=== PATIENT | male | born 1955 | race Caucasian/White ===

== ENCOUNTER 2016-04-18 10:42 | Observation (INO) | payer OTHER ==
--- NOTE | 2016-04-18 10:54 | CPEKG ---
Heart Rate: 60 RR Interval: 1000 P-R Interval: 200 QRSD Interval: 88 QT Interval: 396 QTC Interval: 396 P [place]: 35 QRS [place]: -17 T Wave [place]: 34 EKG Severity - ABNORMAL ECG - EKG Impression: SINUS RHYTHM EKG Impression: PROBABLE INFERIOR INFARCT, AGE INDETERMINATE EKG Impression: CONSIDER ANTEROSEPTAL INFARCT Electronically Signed By: Neymar Silvestre 18-Apr-2016 10:58:59
[2016-04-18] MEDS ORDERED: ASPIRIN 81 MG CHEWABLE TAB PO ONE (10:56)
[2016-04-18] MEDS ORDERED: NS 1,000 ML IV ONE ×2 (11:07→16:26)
[2016-04-18] MEDS ORDERED: IPRATROPIUM/ALBUTEROL 3 ML DEYVIAL IH ONE (11:07)
--- NOTE | 2016-04-18 11:11 | EDPHY ---
H & P Stated Complaint: cp HPI/ROS: CHIEF COMPLAINT: Chest pain HISTORY OF PRESENT ILLNESS: Patient is a 60-year-old man who comes to the emergency department complaining of chest pain that radiates to his back. He has a history of cardiac disease with a stent in his LAD and right coronary artery. The most recent placed by Dr. Khan about 5 years ago. He is also a smoker. He denies COPD asthma history. Does have mild wheezing on exam. No recent fevers. He does not feel short of breath. No diaphoresis. His pain began around 6:00 a.m. this morning while he was waking up from sleep. REVIEW OF SYSTEMS: Constitutional: denies: chills, fever, recent illness, recent injury EENTM: denies: blurred vision, double vision, nose congestion Respiratory: denies: cough, shortness of breath Cardiac: See HPI Gastrointestinal/Abdominal: denies: abdominal pain, diarrhea, nausea, vomiting, blood streaked stools Genitourinary: denies: dysuria, frequency, hematuria, pain Musculoskeletal: denies: joint pain, muscle pain Skin: denies: lesions, rash, jaundice, bruising Neurological: denies: headache, numbness, paresthesia, tingling, dizziness, weakness Hematologic/Lymphatic: denies: blood clots, easy bleeding, easy bruising Immunologic/allergic: denies: HIV/AIDS, transplant EXAM: GENERAL: Well-appearing, well-nourished and in no acute distress. HEAD: Atraumatic, normocephalic. EYES: Pupils equal round and reactive to light, extraocular movements intact, sclera anicteric, conjunctiva are normal. ENT: TMs normal, nares patent, oropharynx clear without exudates. Moist mucous membranes. NECK: Normal range of motion, supple without lymphadenopathy or JVD. LUNGS: Bilateral expiratory wheezes HEART: Regular rate and rhythm without murmurs, rubs or gallops. ABDOMEN: Soft, nontender, normoactive bowel sounds. No guarding, no rebound. No masses appreciated. BACK: No CVA tenderness, no spinal tenderness, step-offs or deformities EXTREMITIES: Normal range of motion, no pitting or edema. No clubbing or cyanosis. NEUROLOGICAL: Cranial nerves II through XII grossly intact. Normal speech, normal gait. 5/5 strength, normal movement in all extremities, normal sensation PSYCH: Normal mood, normal affect. SKIN: Warm, dry, normal turgor, no visible rashes or lesions. Source: Patient, Family Exam Limitations: No limitations - Personal History Current Tetanus/Diphtheria Vaccine: Unsure - Medical/Surgical History Hx Asthma: No Hx Chronic Respiratory Disease: No Hx Diabetes: No Hx Cardiac Disease: Yes Hx Renal Disease: No Hx Cirrhosis: No Hx Alcoholism: No Hx HIV/AIDS: No Hx Splenectomy or Spleen Trauma: No Other PMH: stents - Family History Significant Family History: Hypertension - Social History Smoking Status: Current every day smoker Alcohol Use: Sober Drug Use: None Constitutional: Initial Vital Signs Temperature (C) 36.4 C 04/18/16 10:44 Heart Rate 60 04/18/16 10:44 Respiratory Rate 18 04/18/16 10:44 Blood Pressure 151/83 H 04/18/16 10:44 O2 Sat (%) 95 04/18/16 10:44 O2 Delivery Mode Room Air Allergies/Adverse Reactions: No Known Allergies Allergy (Verified 04/18/16 10:43) Home Medications: Medication Instructions Recorded Aspirin [Aspirin 81mg (OTC)] 81 mg PO DAILY 05/24/13 Lisinopril [Zestril 40 mg (RX)] 40 mg PO DAILY 05/24/13 Metoprolol Tartrate [Lopressor 25 25 mg PO BID 05/24/13 mg (RX)] Nitroglycerin [Nitrostat 0.4 mg 0.4 mg SL PRN PRN 05/24/13 (RX)] Omeprazole [Prilosec 20 mg] 20 mg PO DAILY@18 05/24/13 Atorvastatin Calcium [Lipitor 40 40 mg PO HS 04/18/16 mg (*)] Medical Decision Making - Diagnostics EKG Interpretation: An EKG obtained and was read and documented in trace view. Please see trace view for full reading and report. Sinus rhythm, acute ischemic changes Imaging: Results: CT scan of the chest angiogram was obtained. The results of the study are negative for PE or dissection, coronary artery disease. The study was read by Dr. Austin Christian. I viewed the images myself on the PACS system. ED Course/Re-evaluation: 12:55 a.m. we discussed the test and lab results. The patient is reassured. I will admit based on his history and continued pain. Discussed the case with Nichole Ferrara who will accept to the hospital service. No significant improvement with breathing treatment. Differential Diagnosis: Partial list of the Differential diagnosis considered include but were not limited to; acute coronary disease, dissection, PE, pneumonia and although unlikely based on the history and physical exam, I also considered musculoskeletal, aneurysm. - Data Points Laboratory Results: Laboratory Results 04/18/16 11:00 04/18/16 11:00 04/18/16 04/18/16 04/18/16 11:00 11:00 11:00 WBC 7.60 10^3/uL 10^3/uL (3.80-9.50) RBC 5.52 10^6/uL 10^6/uL (4.40-6.38) Hgb 16.0 g/dL g/dL (13.7-17.5) Hct 49.4 % % (40.0-51.0) MCV 89.5 fL fL (81.5-99.8) MCH 29.0 pg pg (27.9-34.1) MCHC 32.4 g/dL g/dL (32.4-36.7) RDW 14.6 % % (11.5-15.2) Plt Count 146 10^3/uL L 10^3/uL (150-400) MPV 10.2 fL fL (8.7-11.7) Neut % (Auto) 56.0 % % (39.3-74.2) Lymph % (Auto) 35.3 % % (15.0-45.0) Stewart % (Auto) 7.2 % % (4.5-13.0) Eos % (Auto) 1.1 % % (0.6-7.6) Baso % (Auto) 0.1 % L % (0.3-1.7) Nucleat RBC Rel Count 0.0 % % (0.0-0.2) Absolute Neuts (auto) 4.26 10^3/uL 10^3/uL (1.70-6.50) Absolute Lymphs (auto) 2.68 10^3/uL 10^3/uL (1.00-3.00) Absolute Monos (auto) 0.55 10^3/uL 10^3/uL (0.30-0.80) Absolute Eos (auto) 0.08 10^3/uL 10^3/uL (0.03-0.40) Absolute Basos (auto) 0.01 10^3/uL L 10^3/uL (0.02-0.10) Absolute Nucleated RBC 0.00 10^3/uL 10^3/uL (0-0.01) Immature Gran % 0.3 % % (0.0-1.1) Immature Gran # 0.02 10^3/uL 10^3/uL (0.00-0.10) PT 13.2 SEC SEC (12.0-15.0) INR 1.01 (0.83-1.16) APTT 33.8 SEC SEC (23.0-38.0) Sodium 144 mEq/L mEq/L (134-144) Potassium 4.7 mEq/L mEq/L (3.5-5.2) Chloride 106 mEq/L mEq/L (97-110) Carbon Dioxide 27 mEq/l mEq/l (22-31) Anion Gap 11 mEq/L mEq/L (8-16) BUN 15 mg/dL mg/dL (7-23) Creatinine 1.0 mg/dL mg/dL (0.7-1.3) Estimated GFR > 60 Glucose 98 mg/dL mg/dL (70-100) Calcium 9.2 mg/dL mg/dL (8.5-10.4) Troponin I < 0.012 ng/mL ng/mL (0-0.034) NT-Pro-B Natriuret Pep 59 pg/mL pg/mL (0-125) Medications Given: Discontinued Medications Albuterol/Ipratropium (Duoneb) 3 ml IH EDNOW ONE Stop: 04/18/16 11:08 Last Admin: 04/18/16 11:14 Dose: 3 ml Aspirin (Aspirin) 324 mg PO EDNOW ONE Stop: 04/18/16 10:57 Last Admin: 04/18/16 11:10 Dose: 324 mg Sodium Chloride (Ns) 1,000 mls @ 0 mls/hr IV ONCE ONE PRN Reason: Wide Open Stop: 04/18/16 11:08 Last Admin: 04/18/16 11:14 Dose: 1,000 mls Morphine Sulfate (Morphine) 2 mg IVP EDNOW ONE Stop: 04/18/16 11:17 Last Admin: 04/18/16 11:19 Dose: 2 mg Nitroglycerin (Nitrostat) 0.4 mg SL Q5M PRN PRN Reason: Chest Pain Stop: 04/18/16 13:12 Last Admin: 04/18/16 13:50 Dose: 0.4 mg Departure - Departure Disposition: [facility] Inpatient Acute Clinical Impression: Chest pain Qualifiers: Chest pain type: other chest pain Qualified Code(s): R07.89 - Other chest pain Condition: Fair
[2016-04-18 11:21] LABS: % IMMATURE GRANULYOCYTES 0.3 % (0.0-1.1); ABSOLUTE IMMATURE GRANULOCYTES 0.02 10^3/uL (0.00-0.10); ADD DIFF? NO; ADD MORPH? NO; ADD SCAN? NO; ATYPICAL LYMPHOCYTE FLAG 10 (0-99); FRAGMENT RBC FLAG 0 (0-99); HEMATOCRIT 49.4 % (40.0-51.0); LEFT SHIFT FLG 0 (0-99); LIPEMIA HEMOLYSIS FLAG 80 (0-99); MEAN CELL HEMOGLOBIN CONCENTR. 32.4 g/dL (32.4-36.7); MEAN CELL VOLUME 89.5 fL (81.5-99.8); MEAN PLATELET VOLUME 10.2 fL (8.7-11.7); PLATELET CLUMPS FLAG 0 (0-99); PLATELET COUNT 146 10^3/uL (150-400); RED BLOOD CELL COUNT 5.52 10^6/uL (4.40-6.38); RED CELL DISTRIBUTION WIDTH 14.6 % (11.5-15.2)
[2016-04-18 11:30] LABS: INR 1.01 (0.83-1.16); PROTIME(PATIENT) 13.2 SEC (12.0-15.0)
[2016-04-18 11:31] LABS: APTT 33.8 SEC (23.0-38.0)
[2016-04-18 11:41] LABS: ANION GAP 11 mEq/L (8-16); CALCIUM 9.2 mg/dL (8.5-10.4); CARBON DIOXIDE 27 mEq/l (22-31); CHLORIDE 106 mEq/L (97-110); GLOMERULAR FILTRATION RATE > 60; GLUCOSE 98 mg/dL (70-100); POTASSIUM 4.7 mEq/L (3.5-5.2); SODIUM 144 mEq/L (134-144)
[2016-04-18 11:52] LABS: TROPONIN I < 0.012 ng/mL (0-0.034)
[2016-04-18] MEDS ORDERED: IOPAMIDOL (ISOVUE 370) 100 ML BTL IV ONE (11:54)
[2016-04-18] MEDS ORDERED: NITROGLYCERIN 0.4 MG BTL SL ONE (13:25)
[2016-04-18] MEDS: NITROGLYCERIN 0.4 MG BTL SL PRN ×2 (13:45→13:50)
[2016-04-18] MEDS ORDERED: ACETAMINOPHEN 325 MG TAB PO PRN (13:51)
[2016-04-18] MEDS ORDERED: ONDANSETRON DISINTEGRATING 4 MG TAB PO PRN (13:51)
[2016-04-18] MEDS ORDERED: ONDANSETRON 4 MG/2 ML VIAL IVP PRN ×2 (13:51→19:20)
[2016-04-18] MEDS ORDERED: TEMAZEPAM 15 MG CAP PO PRN (15:46)
[2016-04-18] MEDS ORDERED: FAMOTIDINE 20 MG TAB PO ONE ×2 (16:26→17:00)
--- NOTE | 2016-04-18 16:29 | GCON ---
[f rep st] CONSULTATION CARDIAC CONSULT DATE OF CONSULTATION: 04/18/2016 CHIEF COMPLAINT: Chest pain. HISTORY OF PRESENT ILLNESS: This is a 60-year-old gentleman who is known to me from outpatient sett ing. He has a history of premature atherosclerotic cardiovascular disease. He had a myocardial inf arction in 1997 with stent. He was last seen by me in 2012 and doing well. In 2013, he had no more chest pain. Had an LAD stent at that time, so he had a right coronary stent in 1997 and an LAD anjelica nt in 2012. He was doing well until yesterday when he and a friend shoveled 30 cubic yards of dirt. Today, he awoke with chest pain similar to his heart pain before, although there is no shortness o f breath, palpitations, or syncope. He had pain for at least 4-5 hours before presenting to the [facility] emergency room. His troponin, EKG, and exam were normal at this time. He continues to have ongoing pain. He has been compliant with his medicines for hyperlipidemia and hypertension. He was a former smoker. I spoke to him and his about our options of cardiac catheterization versus following up with continued troponins and exercise stress test. After discussing the relativ e procedure, risks, benefits, complications, and the continuation of his pain, we have decided to pr ogress with coronary angiography at this time. He has been n.p.o. He understands the risks and he has had no dye or other complications. I did talk to Dr. Guzman, who is in agreement. SOCIAL HISTORY: He is . 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 He is not having any substance abuse is sues other than the tobacco that he uses. FAMILY HISTORY: Noncontributory. MEDICATIONS: Include Lipitor, lisinopril, metoprolol, aspirin. PHYSICAL EXAM: VITAL SIGNS: Blood pressure is 123/72. GENERAL: He is a middle-aged male in no ac [place] distress. MOUTH: Oropharynx is moist. BACK: CVA and chest wall without palpable tenderness. LUNGS: Clear to auscultation. CARDIOVASCULAR: Regular rate and rhythm without murmur, gallops, o r rubs. ABDOMEN: Soft, nontender. Normal bowel sounds. No hepatosplenomegaly. MUSCULOSKELETAL: Without cyanosis, clubbing, or edema. LABORATORY EVALUATION: Revealed a white count of 7 and hemoglobin is 16. Potassium 4.7. Troponin negative. BNP 59. Creatinine 1.0. CONCLUSION: Patient with known coronary artery disease stenting in 1997 and 2012 of the RCA and LAD , respectively, who was pain-free until this morning. Yesterday, he did have a significant amount o f upper exercise work. However, I cannot reproduce his chest pain with movement at this time. He i s not having any shortness of breath, palpitations, or syncope. He is hemodynamically stable with o ngoing pain. We will progress with coronary angiography for further risk stratification and interve ntion if necessary. The consents will be signed. They understand the risks and have had no previou s complications. Further care depending on clinical course. /[id number]/MODL
[2016-04-18] MEDS ORDERED: DIAZEPAM 5 MG TAB ONE (16:38)
[2016-04-18] MEDS ORDERED: diphenhydrAMINE 25 MG CAP PO ONE (16:38)
--- NOTE | 2016-04-18 17:34 | GHP ---
[f rep st] HISTORY AND PHYSICAL DATE OF ADMISSION: 04/18/2016 CHIEF COMPLAINT: Chest pain. HISTORY OF PRESENT ILLNESS: A 60-year-old male with known coronary artery disease, status post sten ting to his RCA and LAD most recently 2013, who presents with complaints of substernal and left-side d chest pain, which awoke him from sleep early this morning. The patient describes the pain as a pr essure-like penetrating pain that begins on the left side of his chest and moves back. It does not involve his arm or his jaw, which it has during his previous 2 stent placements. The patient report s some associated shortness of breath. No nausea, no vomiting, no diaphoresis, no palpitations. Th e patient cannot discernibly describe an exertional positional or pleuritic component to this pain. Reports that he has been entirely symptom-free since his last intervention in 2013 without limitati ons to activity by either pain or shortness of breath. The patient notably loaded a 30-yard trash d umpster the day before presentation without limitations or pain. Denies any recent lower extremity edema, orthopnea or PND. PAST MEDICAL HISTORY: 1. Coronary artery disease. 2. Tobacco abuse. 3. Dyslipidemia. 4. Hypertension. SOCIAL HISTORY: The patient is smoking approximately a pack per day, down from 1-1/2 packs per day. Rare alcohol. Denies illicit drugs or marijuana. FAMILY HISTORY: Positive for early [place] in his father. ADVANCED DIRECTIVES: The patient is full cor, full tube. His would be his medical decision ma aden. REVIEW OF SYSTEMS: A 10-point review of systems is negative with the exception of that reported in the HPI. PHYSICAL EXAMINATION: VITAL SIGNS: Blood pressure 123/72, heart rate 53, respiratory rate 18, 96% on room air, 36.2. GENERAL: This is a healthy-appearing middle-aged male in mild distress. HEENT: Notable for dry mucous membranes. Eye exam is negative for any icterus. CARDIAC: The patient is regular rate and rhythm. No murmurs, gallops, or rubs. PULMONARY: Clear to auscultation bilatera lly. GASTROINTESTINAL: Positive bowel sounds. ABDOMEN: Soft, nontender in all 4 quadrants. MUSC ULOSKELETAL: Negative for any lower extremity edema. SKIN: Negative for any rashes. NEUROLOGIC: The patient is alert and oriented x3. PSYCHIATRIC: He is pleasant and cooperative on interview an d examination. DATA: White count 7.6, troponin less than 0.012. EKG, which I personally reviewed and interpreted, shows sinus rhythm, with no acute ST-T changes. Creatinine is 1.0. ASSESSMENT AND PLAN: This is a 60-year-old male with known coronary disease, status post stenting x 2, presenting with chest pain reminiscent of his previous interventions. 1. Acute chest pain. The patient's objective data, troponin, EKG and vital signs are all normal. However, remains high risk with his description of pain onset and lack of resolution. We will reche ck rapid cycle troponin now, and consult Cardiology, as I suspect that they will be interested in ca rdiac catheterization. We will keep the patient n.p.o. until that determination is made item. 2. Hypertension. The patient is well controlled on his home medications. We will continue these. 3. Hyperlipidemia. We will continue statin without alteration. 4. Prophylaxis. We will hold for the labor relations officer. DIET: N.p.o. DISPOSITION: I expect less than 2 midnights if the patient rules out and has appropriate either str ess testing or risk stratification. I have discussed the case with Cardiology, Dr. Khan, who we will consult and make recommendations and appropriate diagnostic steps. /[id number]/MODL
[2016-04-18] MEDS ORDERED: fentaNYL 100 MCG/2 ML INJ ONE (18:31)
[2016-04-18] MEDS ORDERED: LIDOCAINE 1% 30 ML SDV ONE (18:31)
[2016-04-18] MEDS ORDERED: MIDAZOLAM 2 MG/2 ML VIAL ONE (18:31)
--- NOTE | 2016-04-18 19:19 | PDDXCAT ---
Diagnostic Cath Note - . Date: 04/18/16 Help Desk Internship: Bill Indication: CCC Class III and IV angina on medical treatment - Procedure Access: right groin Procedure: left heart catheterization, coronary angiography, left ventriculogram - Materials Left Heart Cath size: 6F Left Heart Cath materials: standard multipack (JL4, JR4, pigtail) - Findings-Left Heart Catheterization LM: 1. normal LAD: 1. widely patent mid lad stent LCX: 1. mild irregs RCA: 1. dominamt vessel with patent stent and diffuse mild irregs...pda prox 40% EDP: 15 mmhg LVEF: 1. normal lvef of 55% without rwma Complications: none Estimated blood loss: <50ml Closure method: Angioseal Assessment: 1. widely patent stents of rca and lad with otherwise mild diffuse irregs...normal lvef without rwma Plan: 1. continue medical management and hopefully he will d/c cigarettes..f/u with me 3-4 weeks Patient Problems: Problems Problem Status Onset Chest pain Acute CAD (coronary artery disease) Acute Hypertension Acute Tobacco abuse Acute
[2016-04-18] MEDS ORDERED: HYDROCODONE/APAP 5/325 TAB PO PRN (19:20)
[2016-04-18] MEDS ORDERED: NITROGLYCERIN 0.4 MG BTL SL PRN (19:20)
[2016-04-18] MEDS ORDERED: ATROPINE SULFATE 1 MG/10 ML SYR IVP PRN (19:20)
[2016-04-18] MEDS ORDERED: OXYCODONE/APAP 5/325 TAB PO PRN (19:20)
[2016-04-18] MEDS ORDERED: ATORVASTATIN CALCIUM 40 MG TAB PO SCH (21:00)
[2016-04-18] MEDS: METOPROLOL TARTRATE 25 MG TAB PO SCH (23:25)
[2016-04-19 05:48] LABS: % IMMATURE GRANULYOCYTES 0.3 % (0.0-1.1); ABSOLUTE IMMATURE GRANULOCYTES 0.02 10^3/uL (0.00-0.10); ADD DIFF? NO; ADD MORPH? NO; ADD SCAN? NO; ATYPICAL LYMPHOCYTE FLAG 20 (0-99); FRAGMENT RBC FLAG 0 (0-99); HEMATOCRIT 42.6 % (40.0-51.0); HEMOGLOBIN 13.7 g/dL (13.7-17.5); LEFT SHIFT FLG 0 (0-99); LIPEMIA HEMOLYSIS FLAG 80 (0-99); MEAN CELL HEMOGLOBIN 28.7 pg (27.9-34.1); MEAN CELL HEMOGLOBIN CONCENTR. 32.2 g/dL (32.4-36.7); MEAN CELL VOLUME 89.3 fL (81.5-99.8); MEAN PLATELET VOLUME 10.2 fL (8.7-11.7); PLATELET CLUMPS FLAG 0 (0-99); PLATELET COUNT 130 10^3/uL (150-400); RED BLOOD CELL COUNT 4.77 10^6/uL (4.40-6.38); RED CELL DISTRIBUTION WIDTH 14.9 % (11.5-15.2)
[2016-04-19 05:59] LABS: INR 1.04 (0.83-1.16); PROTIME(PATIENT) 13.5 SEC (12.0-15.0)
[2016-04-19 06:00] LABS: ANION GAP 7 mEq/L (8-16); APTT 33.6 SEC (23.0-38.0); CALCIUM 8.6 mg/dL (8.5-10.4); CARBON DIOXIDE 26 mEq/l (22-31); CHLORIDE 108 mEq/L (97-110); CHOLESTEROL 99 mg/dL (140-220); CHOLESTEROL/HDL RATIO 3.67 RATIO (1.00-4.97); CREATININE 1.1 mg/dL (0.7-1.3); GLOMERULAR FILTRATION RATE > 60; GLUCOSE 90 mg/dL (70-100); HIGH DENSITY LIPOPROTEIN 27 mg/dL (40-65); LDL/HDL RATIO 0.85 RATIO (1.00-3.64); LOW DENSITY LIPOPROTEIN 23 mg/dL (80-100); NON-HIGH DENSITY LIPOPROTEIN 72 mg/dL (90-129); SODIUM 141 mEq/L (134-144); TRIGLYCERIDE 249 mg/dL (40-150); VERY LOW DENSITY LIPOPROTEINS 49 mg/dL (8-25)
[2016-04-19] MEDS ORDERED: diphenhydrAMINE 25 MG CAP PO ONE (06:00)
[2016-04-19] MEDS ORDERED: DIAZEPAM 5 MG TAB PO ONE (06:00)
[2016-04-19] MEDS ORDERED: ACETAMINOPHEN 325 MG TAB PO PRN (06:00)
[2016-04-19] MEDS ORDERED: ASPIRIN EC 325 MG TAB PO ONE (06:00)
[2016-04-19] MEDS ORDERED: NITROGLYCERIN 0.4 MG BTL SL PRN (06:00)
--- NOTE | 2016-04-19 08:42 | CPEKG ---
Heart Rate: 50 RR Interval: 1200 P-R Interval: 204 QRSD Interval: 86 QT Interval: 444 QTC Interval: 405 P [place]: 41 QRS [place]: -1 T Wave [place]: 15 EKG Severity - ABNORMAL ECG - EKG Impression: SINUS RHYTHM EKG Impression: PROBABLE INFERIOR INFARCT, AGE INDETERMINATE EKG Impression: CONSIDER ANTEROSEPTAL INFARCT Electronically Signed By: Allen Gloria 19-Apr-2016 09:02:24
[2016-04-19] MEDS ORDERED: LISINOPRIL 40 MG TAB PO SCH (09:00)
[2016-04-19] MEDS ORDERED: ASPIRIN 81 MG CHEWABLE TAB PO SCH (09:00)
[2016-04-19] MEDS: METOPROLOL TARTRATE 25 MG TAB PO SCH (09:54)
[2016-04-19 11:45] VITALS: BP 150/80; PULSE 55; RESP 16; TEMP 98.1; O2SAT 95
--- NOTE | 2016-04-19 13:42 | GDS ---
[f rep st] DISCHARGE SUMMARY DISCHARGE DIAGNOSES: 1. Nonobstructive coronary disease. 2. Chest pain. 3. Tobacco abuse. 4. Dyslipidemia. 5. Benign hypertension. CONSULTATIONS: Cardiology. PROCEDURES: Cardiac catheterization, impression: Widely patent stents of RCA and LAD with otherwise mild diffuse irregularities. Normal LVEF. HPI: Patient is a 60-year-old male with known coronary disease, tobacco abuse with stents to his RCA and LAD, most recently in 2013. He presented with left- sided and substernal chest pain that awoke him from sleep day of admission. It was pressure-like pain penetrating to the left side of his chest and moved to the back. It did not radiate to his arm. He did have mild shortness of breath. No nausea, vomiting, diaphoresis, or palpitations. The patient notably loaded a 30-yard trash can dumpster the day before without limitations due to pain. ASSESSMENT AND PLAN: 1. Atypical chest pain: known coronary artery disease, thus underwent cardiac catheterization that showed widely patent stents of RCA and LAD, mild diffuse irregularities, normal LVEF. Continue medical management with beta-jennifer, statin, aspirin. He will follow up with Dr. Khan in 4 weeks. 2. Hyperlipidemia. Continue statin. 3. Benign hypertension. Continue lisinopril and beta-jennifer. 4. Tobacco abuse. Patient was counseled on cessation. Both he and his are attempting to quit. DISPOSITION: Patient is stable for discharge. NEW MEDICATIONS: None. FOLLOWUP: Dr. Marino Khan in 3-4 weeks. /[id number]/MODL MTDD
[2016-04-19] MEDS ORDERED: PANTOPRAZOLE SODIUM 40 MG TAB PO SCH (18:00)
== END 2016-04-19 12:47 | disposition home or self-care (01) ==
LOC: F1N 13:52
PROVIDERS: ADMIT Internal Medicine; ATTEND Internal Medicine
PROC: 4A023N7 Measurement of Cardiac Sampling and Pressure, Left Heart, Percutaneous Approach (ICD-10-PCS; principal; 2016-04-18)
PROC: B2111ZZ Fluoroscopy of Multiple Coronary Arteries using Low Osmolar Contrast (ICD-10-PCS; principal; 2016-04-18)
PROC: B2151ZZ Fluoroscopy of Left Heart using Low Osmolar Contrast (ICD-10-PCS; principal; 2016-04-18)
DX: I25.119 Atherosclerotic heart disease of native coronary artery with unspecified angina pectoris (principal); F17.210 Nicotine dependence, cigarettes, uncomplicated; E78.5 Hyperlipidemia, unspecified; I10 Essential (primary) hypertension; Z95.5 Presence of coronary angioplasty implant and graft; Z95.1 Presence of aortocoronary bypass graft; Z82.49 Family history of ischemic heart disease and other diseases of the circulatory system
CPT/HCPCS: 71275; 93005; 93458; G0378; 96374; C1760; J1644; J2250; J3010; Q9967

== ENCOUNTER 2016-05-28 14:25 | Day surgery (SDC) | payer OTHER ==
[2016-05-28] MEDS ORDERED: ONDANSETRON 4 MG/2 ML VIAL IVP PRN (15:08)
[2016-05-28] MEDS ORDERED: LIDOCAINE 1% 5 ML SDV ONE (15:14)
[2016-05-28] MEDS ORDERED: LIDOCAINE 1% 5 ML SDV ID PRN (15:28)
[2016-05-28] MEDS ORDERED: LR 1,000 ML IV ONE (15:28)
[2016-05-28] MEDS ORDERED: BUPIVACAINE/EPI 0.5% 30 ML SDV ONE (17:58)
[2016-05-28] MEDS ORDERED: MIDAZOLAM 2 MG/2 ML VIAL ONE (17:59)
[2016-05-28] MEDS ORDERED: fentaNYL 100 MCG/2 ML INJ ONE ×2 (18:07→18:47)
[2016-05-28] MEDS ORDERED: DEXAMETHASONE 4 MG/ML VIAL ONE (18:08)
[2016-05-28] MEDS ORDERED: ROCURONIUM 50 MG/5 ML VIAL ONE (18:08)
[2016-05-28] MEDS ORDERED: PHENYLEPHRINE HCL 100 MCG/ML SYR ONE (18:15)
[2016-05-28] MEDS ORDERED: SUGAMMADEX SODIUM 200 MG/2 ML VIAL IVP ONE (18:39)
[2016-05-28] MEDS ORDERED: KETOROLAC 30 MG/1 ML SDV ONE (18:39)
--- NOTE | 2016-05-28 19:15 | GOP ---
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 PROCEDURE PERFORMED: Exam under anesthesia with I and D of perirectal abscess and seton placement i n the anal fistula. FINDINGS: The patient was found to have a posterior space perirectal abscess and a direct posterior anal fistula which encircled a large amount of this sphincter muscle. DESCRIPTION OF PROCEDURE: The patient was taken to the operating room where he received satisfactor y general endotracheal anesthesia by Dr. Blanco. He was placed in lithotomy position, prepped and draped in the usual sterile fashion. The area of fluctuance was palpated at the 6 o'clock posit ion and a stab wound was made into the abscess cavity which was adjacent to a fistula track. Absces s was drained and cultured and the incision was extended over to the opening of the fistula track, a nd then a seton suture was placed through the fistula track encircling the sphincter muscle. 2-0 si lk was used. The wound was infiltrated with 0.25% Marcaine and packed. The abscess was packed with iodoform gauze. He tolerated the procedure well. He was taken to the recovery room in good condit ion. There were no complications. The wound had been infiltrated 0.5% Marcaine. /[id number]/MODL
== END 2016-05-28 20:10 | disposition home health service (06) ==
LOC: FSGY 14:25
PROVIDERS: ATTEND Surgery
DX: K61.1 Rectal abscess (principal); I25.10 Atherosclerotic heart disease of native coronary artery without angina pectoris; G47.33 Obstructive sleep apnea (adult) (pediatric); Z72.0 Tobacco use
CPT/HCPCS: J1100; J1885; J1956; J2250; J2370; J3010